=== PATIENT | female | born 1955 | race Hispanic/Latino ===

== ENCOUNTER 2017-03-18 00:19 | Emergency (ER) | payer MEDICAID ==
[2017-03-18] MEDS ORDERED: MAGNESIUM SULFATE 2GM/50ML 2 GM/50 ML BAG IV ONE ×2 (00:26→00:44)
[2017-03-18] MEDS ORDERED: PROVENTIL IH ONE (00:42)
[2017-03-18] MEDS ORDERED: ATROVENT IH ONE (00:43)
--- NOTE | 2017-03-18 02:29 | Emergency Department Report ---
HPI - General Chief Complaint: Adult Asthma Time Seen by Provider: 03/18/17 01:50 - HPI HPI: This is a 61-year-old female presents the emergency department with a complaint of a 2 to three-day history of shortness of breath, wheezing. Patient has a history of asthma and COPD and is supposed to be 2 L oxygen dependent but currently does not have electricity and therefore cannot use her oxygen or her nebulizer. She does use a Spiriva, Advair and DuoNeb inhaler and has been doing so without any relief. She will sometimes go over to her friend' s house, where she is previously stayed for a few months, and order to use the nebulized treatment. She denies any fever, chest pain, nausea, vomiting or diaphoresis. No recent travel or sick contacts at home. ED Past Medical Hx - Past Medical History Previous Medical History?: Yes Hx Hypertension: Yes Hx Asthma: Yes Hx COPD: Yes (2L @ home) - Surgical History Past Surgical History?: No - Social History Smoking Status: Current Every Day Smoker Substance Use Type: None - Medications Home Medications: Home Medications Medication Instructions Recorded Confirmed Last Taken Type predniSONE [Deltasone] 20 mg PO BID #10 tab 03/18/17 Unknown Rx ED Review of Systems ROS: Stated complaint: DIFFICULTY BREATHING Other details as noted in HPI Comment: All other systems reviewed and negative Constitutional: denies: chills, fever Eyes: denies: eye pain, eye discharge, vision change ENT: denies: ear pain, throat pain Respiratory: cough, shortness of breath Cardiovascular: denies: chest pain, palpitations Gastrointestinal: denies: abdominal pain, nausea, diarrhea Genitourinary: denies: urgency, dysuria, discharge Musculoskeletal: denies: back pain, joint swelling, arthralgia Skin: denies: rash, lesions Neurological: denies: headache, weakness, paresthesias Physical Exam - Physical Exam Vital Signs: Vital Signs 03/18/17 03/18/17 03/18/17 00:45 00:48 01:00 Temperature 99.9 F H Pulse Rate 65 68 62 Respiratory 22 19 21 Rate Blood Pressure 112/67 112/67 117/68 O2 Sat by Pulse 97 94 90 Oximetry 03/18/17 03/18/17 01:01 02:00 Temperature Pulse Rate 78 Respiratory 20 21 Rate Blood Pressure 105/66 O2 Sat by Pulse 97 89 Oximetry Physical Exam: GENERAL: The patient is well-developed well-nourished. HEENT: Normocephalic. Atraumatic. Extraocular motions are intact. Patient has moist mucous membranes. Pupils equal reactive to light bilaterally. NECK: Supple. Trachea is midline. CHEST/LUNGS: Mild wheezing throughout the chest. No tachypnea or accessory muscle use. There is no respiratory distress noted. HEART/CARDIOVASCULAR: Regular. There is no tachycardia. There is no gallop rub or murmur. ABDOMEN: Abdomen is soft, nontender. Patient has normal bowel sounds. There is no abdominal distention. SKIN: Skin is warm and dry. NEURO: The patient is awake, alert, and oriented. The patient is cooperative. The patient has no focal neurologic deficits. The patient has normal speech. MUSCULOSKELETAL: There is no tenderness or deformity. There is no limitation range of motion. There is no evidence of acute injury. ED Course Vital Signs 03/18/17 03/18/17 03/18/17 00:45 00:48 01:00 Temperature 99.9 F H Pulse Rate 65 68 62 Respiratory 22 19 21 Rate Blood Pressure 112/67 112/67 117/68 O2 Sat by Pulse 97 94 90 Oximetry 03/18/17 03/18/17 01:01 02:00 Temperature Pulse Rate 78 Respiratory 20 21 Rate Blood Pressure 105/66 O2 Sat by Pulse 97 89 Oximetry ED Medical Decision Making - Lab Data Result diagrams: 03/18/17 02:31 03/18/17 02:31 - EKG Data -: EKG Interpreted by Ut EKG shows normal: sinus rhythm (with sinus arrhythmia), axis, intervals, QRS complexes (Q waves to the septal leads), ST-T waves Rate: normal - EKG Data When compared to previous EKG there are: previous EKG unavailable Interpretation: other (sinus rhythm with sinus arrhythmia, Q waves to the septal leads) - Radiology Data Radiology results: image reviewed interpreted by me: Chest x-ray did not show any acute process. Heart is normal shape and size. No effusions. No pneumothorax. No signs of pneumonia seen. - Medical Decision Making 61-year-old female presents to the emergency department with a few days of wheezing and shortness of breath. She has a history of asthma and COPD but has not been able to use her nebulizer machine on a regular basis and has been unable to use her home oxygen. Today she has some mild wheezing throughout the chest with bronchospasm. She was given breathing treatments, magnesium, Solu- Medrol. Chest x-ray did not show any obvious signs of pneumonia. Vital signs stable including no hypoxia. Labs are unremarkable including a negative d- dimer and negative troponin. Upon reevaluation the patient is feeling improved. She will go home with a 5 day course of steroids. She does not need any refill of her inhalers. She has a primary care doctor for follow-up. We discussed the benefits of smoking cessation. She will return to the ER with any worsening symptoms or any acute distress. - Differential Diagnosis asthma, COPD, pneumonia, CHF Critical Care Time: No Critical care attestation.: If time is entered above; I have spent that time in minutes in the direct care of this critically ill patient, excluding procedure time. ED Disposition Clinical Impression: Asthma exacerbation, COPD exacerbation, Tobacco abuse Disposition: DC-01 TO HOME OR SELFCARE Is pt being admited?: No Condition: Stable Instructions: Chronic Obstructive Pulmonary Disease (ED), Asthma (ED) Additional Instructions: Please follow-up with your primary care physician in the next few days. Return to the emergency department with any worsening of your symptoms or any acute distress. Prescriptions: predniSONE [Deltasone] 20 mg PO BID #10 tab Referrals: PRIMARY CARE, [Primary Care Provider] - [facility]
[2017-03-18 02:47] LABS: Basophils % (Auto) 0.3 % (0.0-1.8); Eosinophils % (Auto) 0.3 % (0.0-4.3); Hematocrit 43.9 % (30.3-42.9); Hemoglobin 14.9 gm/dl (10.1-14.3); Mean Corpuscular HGB Conc 34 % (30-34); Mean Corpuscular Hemoglobin 31 pg (28-32); Mean Corpuscular Volume 92 fl (79-97); Platelet Count 183 K/mm3 (140-440); Red Blood Count 4.79 M/mm3 (3.65-5.03); Red Cell Distribution Width 14.5 % (13.2-15.2); White Blood Count 9.7 K/mm3 (4.5-11.0)
[2017-03-18 03:08] LABS: Anion Gap 17 mmol/L; BUN/Creatinine Ratio 18.75; Blood Urea Nitrogen 15 mg/dL (7-17); Calcium 9.2 mg/dL (8.4-10.2); Carbon Dioxide 31 mmol/L (22-30); Chloride 92.7 mmol/L (98-107); Glucose 186 mg/dL (65-100); Sodium 138 mmol/L (137-145)
[2017-03-18] MEDS ORDERED: DUONEB *Not for PRN Use IH ONE (03:08)
[2017-03-18] MEDS ORDERED: K-DUR PO ONE (03:40)
[2017-03-18] MEDS ORDERED: TYLENOL PO ONE (04:22)
[2017-03-18 04:41] VITALS: BP 117/66
--- NOTE | 2017-03-18 09:28 | XRay Report ---
CHEST TWO VIEWS: 03/18/17 00:19:00 CLINICAL: Shortness of breath. COMPARISON: 07/06/12 FINDINGS: Normal heart and pulmonary vasculature. The lungs are normally expanded and clear. Aortic tortuosity and elongation.The bones and soft tissues are normal. IMPRESSION: Hypertensive changes in the aorta.No acute cardiopulmonary process.
== END 2017-03-18 04:51 | disposition home or self-care (01) ==
LOC: ED 00:19
DX: J44.1 Chronic obstructive pulmonary disease with (acute) exacerbation (principal); J45.901 Unspecified asthma with (acute) exacerbation; F17.200 Nicotine dependence, unspecified, uncomplicated; I10 Essential (primary) hypertension
CPT/HCPCS: 36415; 71020; 80048; 84484; 85025; 85379; 93005; 93010; 94640; 96365; 96375; 99284; J2930; J3475

== ENCOUNTER 2020-03-22 15:56 | Outpatient (CLI) | payer MEDICAID ==
--- NOTE | 2020-03-22 16:44 | XRay Report ---
CLINICAL DATA: LOWER BACK PAIN LOWER BACK PAIN TECHNICAL DATA: AP, lateral, both obliques in the spine L5-S1 view obtained. FINDINGS: Bones are osteopenic. Vertebral body heights are normal. Intervertebral disc spaces are well maintain ed except for slight narrowing L4-L5. Pedicles and spinous processes are normal in alignment. SI join ts and sacrum are normal. IMPRESSION: 1. Mild degenerative changes as noted 2. Osteopenia Signer Name: Kalpesh Gonzalez MD Signed: 03/22/2020 4:40 PM Workstation Name: [id number]
--- NOTE | 2020-03-22 16:50 | XRay Report ---
RIGHT SHOULDER 3 VIEWS INDICATION / CLINICAL INFORMATION: RIGHT SHOULDER PAIN. COMPARISON: None available. FINDINGS: BONES/JOINT(S): No acute fracture or subluxation. Mild DJD in the AC joint. No focal bone lesion. SOFT TISSUES: No significant abnormality. ADDITIONAL FINDINGS: None. Signer Name: Zev Cui MD Signed: 03/22/2020 4:45 PM Workstation Name: [id number]
== END 2020-03-22 15:57 | disposition home or self-care (01) ==
LOC: XRAY 15:56
PROVIDERS: ATTEND Physical Medicine & Rehabilitation
DX: M19.011 Primary osteoarthritis, right shoulder (principal); M47.817 Spondylosis without myelopathy or radiculopathy, lumbosacral region; M85.88 Other specified disorders of bone density and structure, other site; M54.5 Low back pain; M54.2 Cervicalgia; M25.511 Pain in right shoulder
CPT/HCPCS: 72110

== ENCOUNTER 2020-04-21 10:32 | Outpatient (CLI) | payer MEDICAID ==
--- NOTE | 2020-04-21 14:25 | Magnetic Resonance Report ---
MRI CERVICAL SPINE WITHOUT CONTRAST INDICATION / CLINICAL INFORMATION: Neck pain TECHNIQUE: Multisequence, multiplanar images of the cervical spine were obtained. COMPARISON: Cervical spine series 07/08/[address] neck 07/10/2010 FINDINGS: LIMITATIONS: Study is limited by patient motion artifact which degrades image quality. In addition pa tient body habitus has an adverse effect on this examination producing increased separation between t he posterior surface coil and the cervical spine region of interest. POST OPERATIVE CHANGES: none CRANIOCERVICAL JUNCTION:No significant abnormality. ALIGNMENT: Loss of the normal cervical lordosis is noted. No additional abnormalities of alignment ar e identified. VERTEBRAE:Normal marrow signal and vertebral body height for age. CERVICAL INTERVERTEBRAL DISCS: Disc desiccation is evident at the C4-5, C5-6 and C6-7 levels. VISUALIZED SPINAL CORD: No intrinsic cord lesions are identified. Cervical spondylitic changes result in mild flattening the ventral surface of the cord at the C5-6 and C6-7 levels. [id number] ANALYSIS: C2-3: No significant disc abnormality, spinal canal stenosis, or neural foraminal stenosis. C3-4: No significant disc abnormality, spinal canal stenosis, or neural foraminal stenosis. C4-5: Loss of disc height is noted. Anterior osteophyte formation is observed. Posterior disc osteoph yte complex flattens the thecal sac. Mild central canal stenosis is present. Moderate bilateral neuro foraminal stenosis is evident. C5-6: Posterior disc osteophyte complex lateralizes to the right. Thecal sac is deformed the ventral surface of the cord is mildly flattened the right of the midline. Decreased CSF surrounds the cord at this level consistent with moderate central canal stenosis. Mild bilateral neuroforaminal narrowing is suspected. C6-7: Disc desiccation is noted. There is a moderate central and left paracentral disc herniation. Th ere is thecal sac deformity with near complete effacement of CSF from the thecal sac at this level. M oderate central canal stenosis is observed. C7-T1: No significant disc abnormality, spinal canal stenosis, or neural foraminal stenosis. PARASPINAL SOFT TISSUES: Evaluation is limited as described above. No definite abnormalities are iden tified. ADDITIONAL FINDINGS: None. IMPRESSION: 1. Degenerative changes are present at the C4-5, C5-6 and C6-7 levels as described above. 2. Mild central canal stenosis is present at C4-5 with moderate central canal stenosis at C5-6 and C6 -7 levels. 3. Multifocal neuroforaminal stenosis as described level by level above. Signer Name: Alireza Colon MD Signed: 04/21/2020 2:20 PM Workstation Name: [id number]
== END 2020-04-21 10:33 | disposition home or self-care (01) ==
LOC: MRI 10:32
PROVIDERS: ATTEND Physical Medicine & Rehabilitation
DX: M50.31 Other cervical disc degeneration, high cervical region (principal); M47.812 Spondylosis without myelopathy or radiculopathy, cervical region; M50.223 Other cervical disc displacement at C6-C7 level; M25.511 Pain in right shoulder; M48.02 Spinal stenosis, cervical region; M47.892 Other spondylosis, cervical region
CPT/HCPCS: 72141